=== PATIENT | male | born 1935 | race Caucasian/White ===

== ENCOUNTER → 2022-08-25 | Outpatient (CLI) | payer MEDICARE, SELFPAY | END | disposition home or self-care (01) | LOC: LAB 08:54 | PROVIDERS: PCP Family Medicine; Referring Provider Registered Nurse; Visit Provider Registered Nurse | DX: R97.20 Elevated prostate specific antigen [PSA] (principal) | CPT/HCPCS: 36415; 84153 ==

== ENCOUNTER → 2022-10-12 | Outpatient (CLI) | payer MEDICARE, SELFPAY ==
--- NOTE | 2022-10-12 | IMM_PTH ---
PATIENT: OSWALDO BUTCHER LOC: [facility] U#:[id number] AGE/SX: 87/M ROOM: RE10/12/[address]: Dr. Ernesto Valles MD : 1935 BED: DIS: 10/12/2022 SPEC #: [id number] RECD: 10/14/22 13:19 STATUS: KENROY REQ #: [id number] NAVI: 10/12/22 00:[address]: Ernesto Valles DEPT: IMMUNOHISTOCHEMISTRY RECD BY: Chrissie Mills ENTERED: 10/14/22 13:19 SP TYPE: IMMUNO OTHR DR: Dr. Jose Smith MD Tissues: B - PROSTATE RIGHT Procedures: CD31 (initial) FACTOR VIII (add) PHYSICIAN & INSTITUTION [place] [id number] SPECIMEN INFORMATION: Tissue Source: B - Right prostate, mid, core biopsy Clinical Info: Elevated PSA Specimen Number: [id number] CPT code: 85780, 57999 METHODOLOGY: Deparaffinized sections of prefer/formalin-fixed tissue or PAP/DQ stained slides are incubated with monoclonal/polyclonal antibodies/oligonucleotide probes. Localization is made via biotin free immunoperoxidase method. Appropriate controls are performed and reacted as expected. Results on target cell population are indicated in the following table: RESULTS: ANTIBODY / CLONE RESULT Block B CD31 (WILMER/70A) negative Factor VIII (R Ag) negative These tests were developed and their performance characteristics determined by [facility]. They may not have been cleared or approved by the U.[place]. Food and Drug Administration. The FDA has determined that such clearance or approval is not necessary. The above immunohistochemical/dualISH markers are ordered and reviewed by the Pathologist. INTERPRETATION: B. Right prostate, mid, core biopsy: Negative for lymphvascular invasion. LILIAN:sanjuanita 10/15/2022
--- NOTE | 2022-10-12 | PROSBIL_PTH ---
PATIENT: OSWALDO BUTCHER LOC: [facility] U#:[id number] AGE/SX: 87/M ROOM: RE10/12/[address]: Dr. Ernesto Valles MD : 1935 BED: DIS: 10/12/2022 SPEC #: [id number] RECD: 10/13/22 11:42 STATUS: KENROY REDiogo #: [id number] NAVI: 10/12/22 00:[address]: Ernesto Valles DEPT: SURGICAL PATHOLOGY RECD BY: Francisco Gunderson ENTERED: 10/13/22 11:43 SP TYPE: PROST BX SHANIA DR: Dr. Jose Smith MD Tissues: A - PROSTATE RIGHT B - PROSTATE RIGHT C - PROSTATE RIGHT D - PROSTATE LEFT E - PROSTATE LEFT F - PROSTATE LEFT Procedures: PROSTATE BX HEADER OPERATION: Prostate biopsy PRE-OP DIAGNOSIS: Elevated PSA TISSUE SUBMITTED: A - Right apex, B - Right mid, C - Right base, D - Left apex, E - Left mid, F - Left base MICROSCOPIC DIAGNOSIS A. Right prostate, apex, core biopsy: Prostatic adenocarcinoma. Dong grade: 3+4=7 Number of cores involved: 1/1 Proportion of tissue involved: >95% Perineural invasion: Suspected. Greatest tumor length: 1.2 cm Focal high-grade prostatic intraepithelial neoplasia (HGPIN). B. Right prostate, mid, core biopsy: Prostatic adenocarcinoma. Dong grade: 3+4=7 Number of cores involved: 1/1 Proportion of tissue involved: >95% Perineural invasion: Present Greatest tumor length: 1.4 cm Focal high-grade prostatic intraepithelial neoplasia (HGPIN). See comment. C. Right prostate, base, core biopsy: Prostatic adenocarcinoma. Richmond grade: 3+4=7 Number of cores involved: 1/1 Proportion of tissue involved: >95% Perineural invasion: Present. Greatest tumor length: 1.2 cm D. Left prostate, apex, core biopsy: Prostatic tissue, negative for malignancy. E. Left prostate, mid, core biopsy: Prostatic adenocarcinoma. Dong grade: 3+4=7 Number of cores involved: 1/1 Proportion of tissue involved: 80% Perineural invasion: Not identified. Greatest tumor length: 1.4 cm, discontinuous F. Left prostate, base, core biopsy: Prostatic adenocarcinoma. [place] grade: 3+4=7 Number of cores involved: 1/1 Proportion of tissue involved: >95% Perineural invasion: Not identified. Greatest tumor length: 1.1 cm SJ:sanjuanita 10/14/2022 COMMENT Immunohistochemistry ([id number]) is negative for lymph-vascular invasion. Case has been reviewed in consultation with Dr. Hoyos who concurs with the above diagnosis. IDC:[email or web address] MICROSCOPIC DESCRIPTION Slides are reviewed. GROSS DESCRIPTION A - Received is one container designated prostate, right apex. The specimen consists of one elongated fragment of light king-white soft tissue measuring 1.5 cm in length and 0.1 cm in diameter. The specimen is totally submitted in one cassette. B - Received is one container designated prostate, right mid. The specimen consists of one elongated fragment of light king-white soft tissue measuring 1.5 cm in length and 0.1 cm in diameter. The specimen is totally submitted in one cassette. C - Received is one container designated prostate, right base. The specimen consists of one elongated fragment of light king-white soft tissue measuring 1.5 cm in length and 0.1 cm in diameter. The specimen is totally submitted in one cassette. D - Received is one container designated prostate, left apex. The specimen consists of one elongated fragment of light king-white soft tissue measuring 1.1 cm in length and 0.1 cm in diameter. The specimen is totally submitted in one cassette. E - Received is one container designated prostate, left mid. The specimen consists of one elongated fragment of light king-white soft tissue measuring 1.5 cm in length and 0.1 cm in diameter. The specimen is totally submitted in one cassette. F - Received is one container designated prostate, left base. The specimen consists of one elongated fragment of light king-white soft tissue measuring 1.5 cm in length and 0.1 cm in diameter. The specimen is totally submitted in one cassette. / SJ:rg 10/13/2022 TC:0 CPT: G0146
== END | disposition home or self-care (01) ==
LOC: LABSPEC 16:04
PROVIDERS: PCP Family Medicine; Referring Provider Urology; Visit Provider Urology
DX: R97.20 Elevated prostate specific antigen [PSA] (principal)
CPT/HCPCS: 88305; 88341; 88342; G0416

== ENCOUNTER → 2022-10-29 | Outpatient (CLI) | payer MEDICARE, SELFPAY ==
--- NOTE | 2022-10-29 13:13 | CT_ITS ---
STUDY: CT ABDOMEN AND PELVIS WITH AND WITHOUT CONTRAST REASON FOR EXAM: Male, 87 years old. MALIGNANT NEOPLASM OF PROSTATE RADIATION DOSAGE (If Supplied By Facility): CTDIvol = ( 18.42 ) mGy, DLP = ( 3410.20 ) mGycm TECHNIQUE: Transaxial images were obtained from the dome of the diaphragm to the symphysis pubis without oral contrast. IV 100mL Isovue-300 was administered. Sagittal and coronal images were reconstructed. Individualized dose optimization techniques were used for this CT. COMPARISON: None. FINDINGS: The visualized lung bases are unremarkable. Coronary artery calcification. Mild degree of pericardial calcification. There is decreased attenuation of the liver consistent with steatosis. There is a 3.1 cm x 2.6 cm cyst in the anterior medial portion of the right lobe of the liver along the dome of the liver. Normal gallbladder and extrahepatic biliary system. Normal spleen. Normal pancreas. There is symmetric enlargement of the adrenal glands suggesting adrenal hyperplasia. Normal right kidney. Normal left kidney. Mild degree of nonspecific bilateral perinephric stranding. Normal visualized stomach. Normal small intestine. There are multiple colonic diverticula consistent with diverticulosis. The appendix is visualized and appears normal. There is diffuse atherosclerotic calcification of the abdominal aorta and its major visceral branches, without a demonstrated aneurysm. Normal inferior vena cava. Normal retroperitoneum. Mild degree of diffuse bladder wall thickening. The prostate is of heterogeneous density. The prostate measures 3.9 cm x 4.8 cm. Small bilateral inguinal hernias containing fat. There are degenerative changes of the visualized lumbar spine. Degenerative changes of the sacroiliac joints. CT/CT Abd/Pelvis W/WO Contrast IMPRESSION: Heterogeneous enlargement of the prostate. Fatty infiltration of the liver. 3.1 cm x 2.6 cm cyst in the anterior medial portion of the right lobe of liver along the dome of the liver. Mild degree of nonspecific bilateral perinephric stranding. Electronically Signed: Jayson Hamilton MD at 14:33 EDT ,
[2022-10-29 13:45] LABS: EGFR FINGERSTICK > 60.0000 mL/min (>60)
== END | disposition home or self-care (01) ==
PROVIDERS: PCP Family Medicine; Referring Provider Urology; Visit Provider Urology
DX: R97.20 Elevated prostate specific antigen [PSA] (principal); C61 Malignant neoplasm of prostate; N40.3 Nodular prostate with lower urinary tract symptoms
CPT/HCPCS: 74178; Q9967

== ENCOUNTER → 2022-11-16 | Outpatient (CLI) | payer MEDICARE, SELFPAY ==
--- NOTE | 2022-11-16 09:19 | NM_ITS ---
CLINICAL: 87-year-old male with history of primary prostate carcinoma. WHOLE BODY 99m Tc MDP RADIONUCLIDE BONE SCINTIGRAPHY COMPARISON: None available FINDINGS: Following the intravenous administration of 26.3 mCi of 99m Tc MDP, whole body bone images reveal: 1. Increased radiopharmaceutical concentration is identified in the glenohumeral, sternoclavicular and acromioclavicular compartments of both shoulders, the visualized elbows bilaterally, the mid cervical spine posteriorly on the left and right, second thoracic vertebra posteriorly in the midline, the fifth lumbar vertebra posteriorly on the left and right, the bilateral knee articulations and visualized left midfoot. 2. The remaining skeletal structures are scintigraphically unremarkable with normal-appearing renal images and urinary bladder activity identified. There is calcification of the bilateral costochondral junctions. NM/Bone Scan Whole Body IMPRESSION: 1. The increase in radiopharmaceutical concentration defined in the bilateral shoulders, the cervical, thoracic and lumbar spine, bilateral elbows, both knees, the left midfoot is commensurate with degenerative arthritis. 2. There is no definitive scintigraphic evidence of osseous skeletal metastatic disease on the current evaluation. Electronically Signed: Jake Rodriguez, at 23:23 EDT ,
== END | disposition home or self-care (01) ==
PROVIDERS: PCP Family Medicine; Referring Provider Urology; Visit Provider Urology
DX: R97.20 Elevated prostate specific antigen [PSA] (principal); C61 Malignant neoplasm of prostate; N40.3 Nodular prostate with lower urinary tract symptoms
CPT/HCPCS: 78306; A9503

== ENCOUNTER → 2023-02-08 | Outpatient (CLI) | payer MEDICARE, SELFPAY ==
[2023-02-08 16:48] LABS: PSA,Total- Diagnostic 1.16 ng/mL (0.0-4.0)
== END | disposition home or self-care (01) ==
LOC: LAB 16:03
PROVIDERS: PCP Family Medicine; Referring Provider Nurse Practitioner; Visit Provider Nurse Practitioner
DX: C61 Malignant neoplasm of prostate (principal)
CPT/HCPCS: 36415; 84153

== ENCOUNTER → 2023-05-20 | Outpatient (CLI) | payer MEDICARE, SELFPAY ==
[2023-05-20 17:25] LABS: PSA,Total- Diagnostic 0.85 ng/mL (0.0-4.0)
== END | disposition home or self-care (01) ==
LOC: LAB 15:59
PROVIDERS: PCP Family Medicine; Referring Provider Urology; Visit Provider Urology
DX: C61 Malignant neoplasm of prostate (principal)
CPT/HCPCS: 36415; 84153

== ENCOUNTER → 2023-08-25 | Outpatient (CLI) | payer MEDICARE, SELFPAY ==
[2023-08-25 18:42] LABS: PSA,Total- Diagnostic 1.04 ng/mL (0.0-4.0)
== END | disposition home or self-care (01) ==
LOC: LAB 16:19
PROVIDERS: PCP Family Medicine; Referring Provider Urology; Visit Provider Urology
DX: C61 Malignant neoplasm of prostate (principal)
CPT/HCPCS: 36415; 84153

== ENCOUNTER → 2023-12-01 | Outpatient (CLI) | payer MEDICARE, SELFPAY ==
[2023-12-01 17:35] LABS: PSA,Total- Diagnostic 0.92 ng/mL (0.0-4.0)
== END | disposition home or self-care (01) ==
LOC: LAB 16:34
PROVIDERS: PCP Family Medicine; Referring Provider Urology; Visit Provider Urology
DX: C61 Malignant neoplasm of prostate (principal)
CPT/HCPCS: 36415; 84153

== ENCOUNTER → 2024-04-05 | Outpatient (CLI) | payer MEDICARE, SELFPAY ==
[2024-04-05 16:35] LABS: PSA,Total- Diagnostic 1.97 ng/mL (0.0-4.0)
== END | disposition home or self-care (01) ==
LOC: LAB 15:34
PROVIDERS: PCP Family Medicine; Referring Provider Urology; Visit Provider Urology
DX: C61 Malignant neoplasm of prostate (principal)
CPT/HCPCS: 36415; 84153

== ENCOUNTER → 2024-10-03 | Outpatient (CLI) | payer MEDICARE, SELFPAY ==
[2024-10-03 16:49] LABS: PSA,Total- Diagnostic 3.84 ng/mL (0.00-4.00)
== END | disposition home or self-care (01) ==
LOC: LAB 15:16
PROVIDERS: PCP Family Medicine; Referring Provider Urology; Visit Provider Urology
DX: C61 Malignant neoplasm of prostate (principal)
CPT/HCPCS: 36415; 84153